=== PATIENT | male | born 2000 | race Caucasian/White ===

== ENCOUNTER 2021-12-01 10:17 | Emergency (ER) | payer OTHER, SELFPAY ==
[2021-12-01 10:47] VITALS: BP 136/85; PULSE 70; RESP 14; TEMP 36.8; O2SAT 98; BMI 37.1
--- NOTE | 2021-12-01 10:57 | XRR_ITS ---
PROCEDURE INFORMATION: Exam: XR Left Knee Exam date and time: 12/01/2021 11:47 AM Age: 21 years old Clinical indication: Injury or trauma; Fall; Blunt trauma; Knee; Left TECHNIQUE: Imaging protocol: Radiologic exam of the Left knee. Views: 3 views. COMPARISON: No relevant prior studies available. FINDINGS: Bones/joints: Negative for acute bony abnormality Soft tissues: Soft tissue edema medial aspect of the knee XR/XR knee LT 3V* [id number] IMPRESSION: No acute findings.
--- NOTE | 2021-12-01 19:17 | ED_ITS ---
HPI - Extremity Problem General: Chief complaint: Extremity Injury, Lower Stated complaint: left knee pain Time Seen by Provider: 12/01/21 10:53 History of Present Illness: 21 yo male patient presents to ER with left knee pain and swelling. Pt states he stepped out of truck and had immediate pain and swelling. Pt is able to ambulate but hurts to do so. Pt denies any other injury trauma or pain at this time Associated symptoms: Deny chest pain, fever(s) or rash Review of Systems Const: Denies: fever(s), chills, body aches, change in appetite, change in weight, fatigue, malaise or diaphoresis Eyes: Denies: change in vision, blurry vision, blind spots, photophobia, eye discomfort, eye discharge, eye redness, floaters or seeing flashes ENMT: Denies: throat pain, uvular edema, enlarged tonsils, odynophagia, hoarseness, mouth pain, swelling of lips/tongue, oral sores, bleeding gums, dental pain, dry mouth, ear or mastoid pain, ear discharge, change in hearing, tinnitus, disequilibrium, nasal discharge, nasal congestion, post nasal drip or sinus pain Card: Denies: chest pain, palpitations, irregular heart rhythm, edema, swelling of feet/ankles, lightheadedness, syncope, pre-syncope, dyspnea on exertion, orthopnea, leg pain with exertion or acrocyanosis Resp: Denies: dyspnea, productive cough, non-productive cough, wheezing, stridor, pain on inspiration, change in phlegm color, hemoptysis or chest congestion GI: Denies: abdominal pain, nausea, vomiting, hematemesis, dysphagia, diarrhea, constipation, GI cramping, change in bowel habits or rectal pain : Denies: flank pain, dysuria, urinary frequency, urinary urgency, urinary hesitancy or hematuria Musc: Denies: neck pain, back pain, joint pain, joint swelling, joint redness, joint warmth or deformity Skin/Breast: Denies: rash, pruritus, erythema, sores, new lesions, changes in skin color or dry skin Neuro: Denies: headache(s), numbness in extremities, weakness in extremities, sensory changes, lack of coordination, difficulty walking, frequent falls, dizziness, vertigo, confusion, behavioral changes, Slurred speech present, difficulty communicating thoughts or seizure-like activity Psych: Denies: anxiety, depression, suicidal ideation or homicidal ideation Endo: Denies: polyuria, polydipsia, tired all the time, cold intolerance, excessive sweating, flushing, hot flashes or heat intolerance Jameel/Lymph: Denies: easy bruising, easy bleeding, petechiae, purpura, enlarged lymph nodes or tender lymph nodes All/Imm: Denies: urticaria, throat swelling, tongue swelling, facial swelling, acute wheezing or itchy eyes Physical Exam Const: COMMON NORMALS: no acute distress, patient oriented x3, healthy onelia earing, alert and well nourished GENERAL APPEARANCE: cooperative, comfortable, well kempt and well developed; not ill appearing ORIENTATION/CONSCIOUSNESS: Yes awake, Yes oriented to person, Yes oriented to place and Yes oriented to time HENMT: THROAT: no uvular edema Neck/C-Spine: COMMON NORMALS: full ROM, no lymphadenopathy, supple, no meningeal signs, no JVD and Thyroid normal GENERAL: Yes normal visual i nspection and Yes trachea midline THYROID: Thyroid normal CERVICAL SPINE: Yes cervical ROM normal Chest: COMMONS NORMALS: normal inspection of the chest and normal palpation of entire chest wall Resp: COMMON NORMALS: normal respiratory effort, No retractions, No use of accessory muscles and clear to auscultation bilaterally EFFORT & INSPECTION: Yes able to speak in complete sentences and Yes symmetric chest movement AUSCULTATION: clear to auscultation bilaterally Cardio: COMMON NORMALS: no JVD, regular rate and regular rhythm RATE: regular rate RHYTHM: regular rhythm : COMMON NORMALS: Yes no CVA tenderness BLADDER/KIDNEY EXAM: Yes no CVA tenderness Back/Pelvis: COMMON NORMALS: no CVA tenderness, thoracic and lumbar spine normal to inspection, no thoracic nor lumbar tenderness and thoraco-lumbar ROM normal THORACIC SPINE/UPPER BACK: Yes normal to inspection LUMBAR SPINE/LOWER BACK: Yes normal to inspection Extremity: COMMON NORMALS: capillary refill normal GENERAL: Yes normal exam except as noted Neuro: COMMON NORMALS: patient oriented x3 SENSORIUM/ORIENTATION: Yes alert, Yes oriented to person, Yes oriented to place and Yes oriented to time MENINGEAL SIGNS: Yes no meningeal signs Psych: COMMON NORMALS: mental status grossly normal, Normal thought process present, cooperative, normal affect, speech normal, activity/motor behavior normal, denies hallucinations, denies homicidal ideation and denies suicidal ideation APPEARANCE: Yes grossly normal and Yes well kempt ATTITUDE: Yes calm ACTIVITY/MOTOR BEHAVIOR: Yes appropriate eye contact SPEECH: Yes normal speech THOUGHT PROCESS: Normal thought process present THOUGHT CONTENT: Yes Normal thought content present ATTENTION/CONCENTRATION: Yes attention grossly intact MEMORY/COGNITION: Yes memory grossly intact INSIGHT: Good insight present (Psych) JUDGEMENT: Good judgement present (Psych) Skin: COMMON NORMALS: no rashes or lesions noted, no wounds, turgor normal, no jaundice, no petechiae and no mottling GENERAL SKIN EXAM: no rashes or lesions noted and turgor normal Course Vital Signs: Vital signs: Vital Signs Temperature 98.3 F 12/01/21 10:47 Pulse Rate 70 12/01/21 10:47 Respiratory Rate 14 12/01/21 10:47 Blood Pressure 136/85 12/01/21 10:47 Pulse Oximetry 98 12/01/21 10:47 MDM - Extremity (Nontraumatic) Medical Decision Making Patient is well appearing non toxic and in no acute distress. 21 yo male patient presents to ER with left knee pain and swelling. Pt states he stepped out of truck and had immediate pain and swelling. Pt is able to ambulate but hurts to do so. Pt denies any other injury trauma or pain at this time xray reveals no acute fracture of dislocation. Pt does have an effusion to the medial aspect of knee. Pt is NVI distally. I will place in knee immobilizer and crutches and if no improvement have follow up with PCP for possible mri, Lab Data Radiology Impressions Knee X-Ray 12/01/21 10:57 IMPRESSION: No acute findings. Discharge Plan Discharge Patient Disposition: Home Clinical Impression: Effusion of knee Condition: Stable Discharge Orders: Discharge ED (Routine); Ordered 12/01/21 Ordered By: Melba Schwartz Discharge Diet: Advance as tolerated Discharge Activity: Limit activity as instructed Patient Instructions: Opioid Safety Activity Restrictions/Additional Instructions: Wear knee immobilizer and use crutches for 2 weeks If no improvement follow up with PCP for MRI Ibuprofen per label directions Ice Elevate Coding Level of Care Code ED Residential Recycle Driver for Lashae Kohler
== END 2021-12-01 13:20 | disposition home or self-care (01) ==
PROVIDERS: Emergency Provider Registered Nurse
DX: M25.462 Effusion, left knee (principal)
CPT/HCPCS: 29530; 73562; 99283; E0114

== ENCOUNTER → 2021-12-24 15:28 | Outpatient (BNVA) | payer OTHER, SELFPAY | PROVIDERS: Visit Provider Specialist | DX: M25.562 Pain in left knee (principal) | CPT/HCPCS: 73560; 73565 ==

== ENCOUNTER 2021-12-24 16:25 | Outpatient (CLI) | payer OTHER, SELFPAY | END 2021-12-24 16:26 | disposition home or self-care (01) | LOC: SPT 16:27 | PROVIDERS: Visit Provider Specialist | DX: Z46.89 Encounter for fitting and adjustment of other specified devices (principal); M25.562 Pain in left knee | CPT/HCPCS: 97760; L1812 ==

== ENCOUNTER 2022-01-15 14:51 | Outpatient (CLI) | payer OTHER, SELFPAY ==
--- NOTE | 2022-01-15 15:15 | MR_ITS ---
WS: [id number] MRI LEFT KNEE HISTORY: Pain after injury in November 2021. COMPARISON: Radiograph 12/24/2021 Anterior cruciate ligament: Intact. Posterior cruciate ligament: Intact. Medial collateral ligament: Fluid surrounding the MCL but no MCL tear. Posterior lateral corner structures: Intact. Medial menisci: Intact. Normal signal, size and shape. Lateral meniscus: Intact. Normal signal, size and shape. Extensor mechanism: Distal quadriceps tendon is normal. Patellar tendon is very wavy. No definite ten don tear is identified. Fluid and soft tissue: Small suprapatellar joint effusion. . Small Alcala's cyst. Osseous and articular structures: Patellofemoral compartment: Abnormal medial patellar retinaculum. There is increased T2 signal. There is a very small amount of marrow edema involving the medial patella. Abnormal signal in the medial p atellar retinaculum. Medial compartment: No joint space narrowing. The cartilage is intact. Lateral compartment: No joint space narrowing. The cartilage is intact. There is a small amount of ma rrow edema in the lateral femoral condyle. Surface irregularity and loss of the normal overlying kandy ex involving the anterolateral femoral condyle suspicious for very minimal cortical injury and trabec ular injury. There is also increased T2 signal in the cartilage extending over a width of 9 mm at the site of the marrow edema. 1.5 cm intermediate signal within the suprapatellar joint effusion. This is a loose body and is proba keyona an cartilaginous/osseous fragment associated with the joint surface of the lateral femoral condyl e. MR/MR knee LT wo con* [id number] IMPRESSION: 1. Suprapatellar joint effusion with a curvilinear osseous fragment measuring 1.5 cm. Donor site is probably along the weightbearing surface of the lateral f emoral condyle or nonweightbearing surface of the lateral femoral condyle as th ere is bone and cartilaginous injury at this location. 2. Possible transient patellar dislocation. Very small amount of edema in the medial patella and abnormal T2 signal in the medial patellar retinaculum. 3. Small amount of marrow edema in the lateral femoral condyle with trabecular and cortical injury. 4. Edema surrounding the MCL but no tear. 5. Patellar tendon is very wavy but no definite tear is identified.
== END 2022-01-15 14:52 | disposition home or self-care (01) ==
PROVIDERS: Visit Provider Specialist
DX: S83.105A Unspecified dislocation of left knee, initial encounter (principal); X58.XXXA Exposure to other specified factors, initial encounter
CPT/HCPCS: 73721

== ENCOUNTER → 2022-01-30 11:59 | Outpatient (BNVA) | payer OTHER, SELFPAY | PROVIDERS: Visit Provider Specialist | DX: M23.42 Loose body in knee, left knee (principal); S72.425A Nondisplaced fracture of lateral condyle of left femur, initial encounter for closed fracture; X58.XXXA Exposure to other specified factors, initial encounter; Y99.0 Civilian activity done for income or pay | CPT/HCPCS: 73560; 73565 ==

== ENCOUNTER → 2022-02-18 08:06 | Outpatient (BNVA) | payer OTHER, SELFPAY | PROVIDERS: Visit Provider Specialist | DX: S72.425D Nondisplaced fracture of lateral condyle of left femur, subsequent encounter for closed fracture with routine healing (principal); X58.XXXD Exposure to other specified factors, subsequent encounter; M23.42 Loose body in knee, left knee | CPT/HCPCS: 73560; 73565 ==

== ENCOUNTER 2022-03-18 13:13 | Outpatient (CLI) | payer OTHER, SELFPAY ==
--- NOTE | 2022-03-18 13:15 | IR_ITS ---
WS: [id number] Left knee arthrogram, 03/18/2022 Clinical Data: pain Comparison: None. Fluoroscopy time: 0min [id number] # of spot films: 1 Findings: After the usual preparation the contrast material, a mixture of saline with gadolinium, was injected into the left knee joint for total of 40 mL. There was no complication. IR/[place] [id number] Impression: Left knee arthrogram injection for left knee MRI.
--- NOTE | 2022-03-18 13:45 | MR_ITS ---
WS: [id number] INDICATION: Knee pain. Knee pops. Pain after injury November 2021 TECHNIQUE: Axial coronal and sagittal T1 imaging with fat saturation technique. Post intra-articular administration of gadolinium COMPARISON: MRI January 15, 2022 FINDINGS: Previously described avulsed chondral fragment not well visualized today. Recommend correla tion with surgical history. Chondral fissuring along the patella cartilage. Suspected donor site along the posterior lateral femo ral condyle is unchanged. Focus of low signal deep to the medial patellar retinaculum near the MCL ma y represent an osseous or chondral fragment versus ligamentous capsule. Shallow trochlear groove with lateral subluxation of the patella corresponding to previously describe d patella dislocation. Partial tear of the medial patellar retinaculum. Medial collateral and lateral collateral ligaments appear intact. ACL and PCL appear intact. No acute appearing meniscal tears. MR/MR knee LT w con [id number] IMPRESSION: 1. Previously described avulsed chondral fragment is not well seen today. Wojciech mmend correlation with interval surgery. 2. There is a small low signal focus deep to the medial patellar retinaculum m easuring 9 mm may be ligamentous capsule or osseous fragment. 3. Suspected chondral donor site along the posterior lateral femoral condyle a ppears unchanged. 4. Slight fissuring along the posterior superior surface of the patella. 5. Lateral subluxation of the patella with tear of the medial patellar retinac ulum compatible with history of prior patella dislocation. Shallow trochlear gr oove. 6. No acute appearing meniscal tears. 7. No other significant interval changes.
[2022-03-18] MEDS: gadobenate dimeglumine 5 mL vial XX (14:18)
[2022-03-18] MEDS: iohexol 240 mg/mL 50 mL Btl INTRA-ARTI (14:19)
== END 2022-03-18 13:14 | disposition home or self-care (01) ==
LOC: RAD 13:14
PROVIDERS: Visit Provider Specialist
DX: S72.425A Nondisplaced fracture of lateral condyle of left femur, initial encounter for closed fracture (principal); M23.42 Loose body in knee, left knee; X58.XXXA Exposure to other specified factors, initial encounter; S83.012A Lateral subluxation of left patella, initial encounter; S76.112A Strain of left quadriceps muscle, fascia and tendon, initial encounter
CPT/HCPCS: 27369; 73722; 77002

== ENCOUNTER 2022-03-20 15:00 | Outpatient (CLI) | payer OTHER, SELFPAY | END 2022-03-20 15:01 | disposition home or self-care (01) | LOC: SPT 15:00 | PROVIDERS: Visit Provider Specialist | DX: Z46.89 Encounter for fitting and adjustment of other specified devices (principal); S72.422D Displaced fracture of lateral condyle of left femur, subsequent encounter for closed fracture with routine healing; X58.XXXD Exposure to other specified factors, subsequent encounter; M23.42 Loose body in knee, left knee | CPT/HCPCS: 97760; L1812 ==

== ENCOUNTER → 2022-05-01 08:33 | Outpatient (BNVA) | payer OTHER, SELFPAY | PROVIDERS: Visit Provider Specialist | DX: S72.425D Nondisplaced fracture of lateral condyle of left femur, subsequent encounter for closed fracture with routine healing (principal); X58.XXXD Exposure to other specified factors, subsequent encounter | CPT/HCPCS: 73560; 73565 ==

== ENCOUNTER → 2022-06-24 15:45 | Outpatient (BNVA) | payer OTHER, SELFPAY | PROVIDERS: Visit Provider Specialist | DX: S72.425D Nondisplaced fracture of lateral condyle of left femur, subsequent encounter for closed fracture with routine healing (principal); M23.42 Loose body in knee, left knee; X58.XXXD Exposure to other specified factors, subsequent encounter | CPT/HCPCS: 73560; 73565 ==

== ENCOUNTER → 2022-08-21 13:53 | Outpatient (BNVA) | payer OTHER, SELFPAY | PROVIDERS: Visit Provider Specialist | DX: M25.562 Pain in left knee (principal); S72.42 Fracture of lateral condyle of femur; X58.XXXS Exposure to other specified factors, sequela | CPT/HCPCS: 73560; 73565 ==